=== PATIENT | female | born 2000 | race Two or more races ===

== ENCOUNTER → 2021-10-10 | Outpatient (CLI) | payer OTHER | LOC: M CARPUL 14:14 | PROVIDERS: ATTEND Physician Assistant | DX: R06.00 Dyspnea, unspecified (principal) ==

== ENCOUNTER 2021-12-07 16:21 | Emergency (ER) | payer OTHER ==
[~2021-12-07] VITALS: Ht 162.6 cm; Wt 60.1 kg
[2021-12-07 19:03] VITALS: BP 119/82
== END 2021-12-07 19:05 | disposition home or self-care (01) ==
LOC: M ED 16:21
DX: D17.1 Benign lipomatous neoplasm of skin and subcutaneous tissue of trunk (principal); M77.8 Other enthesopathies, not elsewhere classified

== ENCOUNTER 2022-10-07 11:11 | Day surgery (SDC) | payer OTHER ==
[~2022-10-07] VITALS: Ht 162.6 cm; Wt 58.0 kg
[~2022-10-07 11:11] MED LIST: TOBRADEX OPHTH OINT 3.5 GM As Ordered ONE
[2022-10-07] MEDS ORDERED: propofoL 200 MG/20 ML VIAL As Ordered ONE (12:59)
[2022-10-07] MEDS ORDERED: fentaNYL 100 MCG/2 ML INJECTION As Ordered ONE (12:59)
[2022-10-07] MEDS ORDERED: MIDAZOLAM INJ 2MG/2ML VIAL As Ordered ONE (12:59)
[2022-10-07] MEDS ORDERED: LIDOCAINE 2% W/EPINEPHRINE 20ML VIAL **PRES FREE As Ordered ONE (13:39)
[2022-10-07] MEDS ORDERED: POVIDONE-IODINE 5% OPHTH PREP SOL 30ML As Ordered ONE (13:41)
[2022-10-07 14:45] VITALS: BP 114/74; TEMP 97.7; O2SAT 99
== END 2022-10-07 15:51 | disposition home or self-care (01) ==
LOC: M SDC 11:11
PROVIDERS: ATTEND Ophthalmology
DX: H00.14 Chalazion left upper eyelid (principal)
CPT/HCPCS: 67808; 81025; 88305; J2250; J3010